=== PATIENT | female | born 1990 | race Caucasian/White ===

== ENCOUNTER 2017-04-20 13:57 | Emergency (ER) | payer MEDICAID ==
--- NOTE | 2017-04-20 14:31 | EDPHY ---
H & P Smoking Status: Current every day smoker <Natalia Almanza - Last Filed: 04/20/17 15:02> <Dustin Villalba - Last Filed: 04/20/17 15:55> Time Seen by Provider: 04/20/17 14:15 HPI/ROS: CHIEF COMPLAINT: "Stomach ache," CONSTIPATION HISTORY OF PRESENT ILLNESS: The patient is a 26-year-old female with bipolar disorder and previous kidney infection presents emergency department with abdominal cramping and discomfort. Her constipation started 7 days ago. She reports a single small bowel movement that had "some mucous." She has had 3 days of abdominal cramping. This is in the lower abdomen. Mild nause with no vomiting. She denies dysuria but has chronic frequency. Patient feels mildly bloated. Her last menstrual period was 04/11/2017 and she was "a little late." She has an IUD in place. She denies any back pain. No fevers or chills. REVIEW OF SYSTEMS: My complete review of systems is negative except as mentioned in the HPI. ( Natalia Almanza) Past Medical/Surgical History: Includes bipolar disorder, pyelonephritis, strep throat, hypertension Past surgical history: Denies Social history: The patient smokes cigarettes. She denies drugs or alcohol. ( Natalia Almanza) Physical Exam: Vitals noted. 37.1, 130/68, 80, 18, 98% on room air GENERAL: Well-appearing, in no acute distress, alert. HEENT: Eyes normal to inspection, normal pharynx, no signs of dehydration. NECK: No thyromegaly, no lymphadenopathy, supple. RESPIRATORY: Clear to auscultation bilaterally, no rales, rhonchi or wheezing. CVS: Regular rate and rhythm, no rubs, murmurs, or gallops. ABDOMEN: Soft, mild diffuse lower abdominal tenderness palpation with no rebound or guarding. Nondistended, no organomegaly. BACK: Normal to inspection, no CVA tenderness. SKIN: Normal color, no rash, warm, dry. No pallor. EXTREMITIES: No pedal edema, no calf tenderness, no joint swelling. NEURO/PSYCH: Alert and oriented, normal mood and affect (Natalia Almanza) Constitutional: Initial Vital Signs Temperature (C) 37.1 C 04/20/17 14:13 Heart Rate 80 04/20/17 14:13 Respiratory Rate 18 04/20/17 14:13 Blood Pressure 130/68 H 04/20/17 14:13 O2 Sat (%) 98 04/20/17 14:13 O2 Delivery Mode Room Air Allergies/Adverse Reactions: clindamycin Allergy (Unknown, Verified 04/20/17 14:13) Home Medications: Medication Instructions Recorded QUEtiapine FUMARATE [Seroquel 300 mg PO DAILY 04/12/12 300mg (RX)] lamoTRIgine [LamICTAL 100 mg (RX)] 100 mg PO 04/12/12 Propranolol HCl 03/16/14 Cephalexin [Keflex (*)] 500 mg PO QID #12 cap 04/20/17 Phenazopyridine HCl [Pyridium] 100 mg PO TID #6 tab 04/20/17 Medical Decision Making <Natalia Almanza - Last Filed: 04/20/17 15:02> - Diagnostics Imaging: Discussed imaging studies w/ manager call center Radiologist <Dustin Villalba - Last Filed: 04/20/17 15:55> - Diagnostics Imaging Results: Imaging Impressions Pelvic/Renal Ultrasound 04/20/17 14:33 Impression: No definite source for bleeding and diffuse abdominal pain. There may be minimal penetration of the myometrium by the IUD in the fundal region on the patient's right. Results called and discussed with Vini Villalba M.D. on 04/20/2017 at 15:34 ED Course/Re-evaluation: In the emergency department an IV was placed. Laboratory studies were obtained. Patient was given normal saline 500 mL IV for hydration. Laboratory studies and pelvic ultrasound were ordered. Patient refused an enema to treat her reported constipation. 1449 I reviewed the patient's laboratory studies. Of note her WBCs were elevated at 12. was negative. Chemistries pending. Patient is currently ultrasound. 1500: Patient is signed out to Dr. Villalba at change of shift. Patient is awaiting ultrasound results. Patient was noted to have an elevated white count with positive leuk esterase and white cells in her urine. She was written for a prescription of Keflex. (Natalia Almanza) 1500 patient signed out to me from Dr. Almanza pending pelvic ultrasound results. Patient presenting with constipation symptoms lower abdominal cramping and is pending ultrasound of her pelvis. Patient has a mild leukocytosis without a left shift. She also has leukocyte esterase and white cells in her urine. 1540 ultrasound results noted. I have discussed the findings with the patient. She will follow up with her OBGYN regarding her IUD placement. I have also reviewed the patient's urinalysis. She has 2+ epithelial cells which is suggestive more of contamination rather than UTI. She would prefer not to take the Keflex at this time. I will order a urine culture to establish if she has infection or not. Patient will be given a prescription bulla filled at this time will hold off and she will call back in 2 days to see the results of his cultures. If positive she can get that filled at that time. She otherwise has a benign exam. I have recommended that she continue MiraLax. Also recommended that she take magnesium citrate and also to use a enema at home. She can get both of these [id number]. I have given these instructions and she will follow up with primary care physician about a week, return for any worsening symptoms. (Dustin Villalba) Differential Diagnosis: My differential includes but is not limited to constipation, small-bowel obstruction, perforation, diverticulitis, ovarian cyst, ovarian torsion, , ectopic (Natalia Almanza) - Data Points Laboratory Results: Laboratory Results 04/20/17 14:40 04/20/17 14:40 04/20/17 04/20/17 04/20/17 14:40 14:40 14:30 WBC 12.02 10^3/uL H 10^3/uL (3.80-9.50) RBC 4.80 10^6/uL 10^6/uL (4.18-5.33) Hgb 15.9 g/dL g/dL (12.6-16.3) Hct 46.6 % % (38.0-47.0) MCV 97.1 fL fL (81.5-99.8) MCH 33.1 pg pg (27.9-34.1) MCHC 34.1 g/dL g/dL (32.4-36.7) RDW 12.3 % % (11.5-15.2) Plt Count 238 10^3/uL 10^3/uL (150-400) MPV 9.6 fL fL (8.7-11.7) Neut % (Auto) 67.6 % % (39.3-74.2) Lymph % (Auto) 21.6 % % (15.0-45.0) Randolph % (Auto) 8.4 % % (4.5-13.0) Eos % (Auto) 1.4 % % (0.6-7.6) Baso % (Auto) 0.6 % % (0.3-1.7) Nucleat RBC Rel Count 0.0 % % (0.0-0.2) Absolute Neuts (auto) 8.12 10^3/uL H 10^3/uL (1.70-6.50) Absolute Lymphs (auto) 2.60 10^3/uL 10^3/uL (1.00-3.00) Absolute Monos (auto) 1.01 10^3/uL H 10^3/uL (0.30-0.80) Absolute Eos (auto) 0.17 10^3/uL 10^3/uL (0.03-0.40) Absolute Basos (auto) 0.07 10^3/uL 10^3/uL (0.02-0.10) Absolute Nucleated RBC 0.00 10^3/uL 10^3/uL (0-0.01) Immature Gran % 0.4 % % (0.0-1.1) Immature Gran # 0.05 10^3/uL 10^3/uL (0.00-0.10) Sodium 138 mEq/L mEq/L (134-144) Potassium 4.2 mEq/L mEq/L (3.5-5.2) Chloride 104 mEq/L mEq/L (97-110) Carbon Dioxide 21 mEq/l L mEq/l (22-31) Anion Gap 13 mEq/L mEq/L (8-16) BUN 14 mg/dL mg/dL (7-23) Creatinine 0.7 mg/dL mg/dL (0.6-1.0) Estimated GFR > 60 Glucose 91 mg/dL mg/dL (70-100) Calcium 10.4 mg/dL mg/dL (8.5-10.4) Urine Color Urine Appearance Urine pH Ur Specific Dimock Urine Protein Urine Ketones Urine Blood Urine Nitrate Urine Bilirubin Urine Urobilinogen Ur Leukocyte Esterase Urine RBC Urine WBC Ur Epithelial Cells Urine Bacteria Urine Mucus Urine Glucose Urine Test NEGATIVE 04/20/17 14:00 WBC RBC Hgb Hct MCV MCH MCHC RDW Plt Count MPV Neut % (Auto) Lymph % (Auto) Randolph % (Auto) Eos % (Auto) Baso % (Auto) Nucleat RBC Rel Count Absolute Neuts (auto) Absolute Lymphs (auto) Absolute Monos (auto) Absolute Eos (auto) Absolute Basos (auto) Absolute Nucleated RBC Immature Gran % Immature Gran # Sodium Potassium Chloride Carbon Dioxide Anion Gap BUN Creatinine Estimated GFR Glucose Calcium Urine Color YELLOW Urine Appearance CLEAR Urine pH 6.0 (5.0-7.5) Ur Specific Dimock 1.015 (1.002-1.030) Urine Protein NEGATIVE (NEGATIVE) Urine Ketones NEGATIVE (NEGATIVE) Urine Blood NEGATIVE (NEGATIVE) Urine Nitrate NEGATIVE (NEGATIVE) Urine Bilirubin NEGATIVE (NEGATIVE) Urine Urobilinogen 0.2 EU EU (0.2-1.0) Ur Leukocyte Esterase TRACE H (NEGATIVE) Urine RBC 1-3 /hpf /hpf (0-3) Urine WBC 3-5 /hpf H /hpf (0-3) Ur Epithelial Cells 2+ /lpf H /lpf (NONE-1+) Urine Bacteria 1+ /hpf H /hpf (NONE SEEN) Urine Mucus TRACE /lpf /lpf (NONE-1+) Urine Glucose NEGATIVE (NEGATIVE) Urine Test Medications Given: Discontinued Medications Sodium Chloride (Ns) 500 mls @ 0 mls/hr IV ONCE ONE PRN Reason: Wide Open Stop: 04/20/17 14:33 Last Admin: 04/20/17 14:40 Dose: 500 mls Ketorolac Tromethamine (Toradol) 30 mg IVP EDNOW ONE Stop: 04/20/17 14:34 Last Admin: 04/20/17 14:56 Dose: Not Given Departure <Natalia Almanza - Last Filed: 04/20/17 15:02> <Dustin Villalba - Last Filed: 04/20/17 15:55> - Departure Disposition: Home, Routine, Self-Care Clinical Impression: Abdominal pain Qualifiers: Abdominal location: lower abdomen, unspecified Qualified Code(s): R10.30 - Lower abdominal pain, unspecified Condition: Good Instructions: Abdominal Pain (ED) Additional Instructions: Continue using the MiraLax daily as a stool softener. For worsening constipation you may by magnesium citrate [id number]. Drink 1/2 of the bottle and wait 1 hour. If you do not have a bowel movement after an hour drink the 2nd half of the bottle. You may also use a over-the- counter enema 1 hour after drinking the magnesium citrate to facilitate a bowel movement. Return to the emergency depart for increasing pain, fevers, chills, uncontrolled nausea vomiting, worsening constipation, or any other concerns. Call back in 2 days to check on your urine culture results before starting your antibiotic. Referrals: Amber Richards MD [Primary Care Provider] - 2-3 days, call for appt. Prescriptions: Cephalexin [Keflex (*)] 500 mg PO QID #12 cap Phenazopyridine HCl [Pyridium] 100 mg PO TID #6 tab
[2017-04-20] MEDS ORDERED: NS 500 ML IV ONE (14:32)
[2017-04-20] MEDS ORDERED: KETOROLAC 30 MG/1 ML SDV IVP ONE (14:33)
[2017-04-20 14:44] LABS: % IMMATURE GRANULYOCYTES 0.4 % (0.0-1.1); ABSOLUTE IMMATURE GRANULOCYTES 0.05 10^3/uL (0.00-0.10); ADD DIFF? NO; ADD MORPH? NO; ADD SCAN? NO; ATYPICAL LYMPHOCYTE FLAG 10 (0-99); FRAGMENT RBC FLAG 0 (0-99); HEMATOCRIT 46.6 % (38.0-47.0); HEMOGLOBIN 15.9 g/dL (12.6-16.3); LEFT SHIFT FLG 0 (0-99); LIPEMIA HEMOLYSIS FLAG 90 (0-99); MEAN CELL HEMOGLOBIN 33.1 pg (27.9-34.1); MEAN CELL HEMOGLOBIN CONCENTR. 34.1 g/dL (32.4-36.7); MEAN CELL VOLUME 97.1 fL (81.5-99.8); MEAN PLATELET VOLUME 9.6 fL (8.7-11.7); PLATELET CLUMPS FLAG 0 (0-99); PLATELET COUNT 238 10^3/uL (150-400); RED CELL DISTRIBUTION WIDTH 12.3 % (11.5-15.2)
[2017-04-20 14:45] LABS: COLOR YELLOW; LEUKOCYTE ESTERASE,URINE TRACE (NEGATIVE); NITRITE,URINE NEGATIVE (NEGATIVE)
[2017-04-20 14:46] LABS: MUCUS TRACE /lpf (NONE-1+)
[2017-04-20 14:47] LABS: BACTERIA 1+ /hpf (NONE SEEN)
[2017-04-20 14:58] LABS: ANION GAP 13 mEq/L (8-16); CALCIUM 10.4 mg/dL (8.5-10.4); CARBON DIOXIDE 21 mEq/l (22-31); CHLORIDE 104 mEq/L (97-110); CREATININE 0.7 mg/dL (0.6-1.0); GLOMERULAR FILTRATION RATE > 60; GLUCOSE 91 mg/dL (70-100); POTASSIUM 4.2 mEq/L (3.5-5.2); SODIUM 138 mEq/L (134-144)
[2017-04-20 16:04] VITALS: BP 108/60; PULSE 69; RESP 16; TEMP 98.6; O2SAT 96
== END 2017-04-20 16:00 | disposition home or self-care (01) ==
LOC: CED 13:57
DX: R10.30 Lower abdominal pain, unspecified (principal); I10 Essential (primary) hypertension; F17.210 Nicotine dependence, cigarettes, uncomplicated
CPT/HCPCS: 76856-PO; 80048-PO; 81003-PO; 81015-PO; 81025-PO; 85025-PO

== ENCOUNTER 2017-08-04 22:23 | Emergency (ER) | payer MEDICAID ==
[2017-08-04 23:12] VITALS: TEMP 97.9
[2017-08-05 00:22] VITALS: BP 120/65; PULSE 69; RESP 14; O2SAT 96
--- NOTE | 2017-08-05 00:33 | EDPHY ---
H & P Stated Complaint: JOHNSON/Dizzy/bilateral ear pain x 3 weeks. Time Seen by Provider: 08/04/17 22:53 HPI/ROS: HPI The patient presents with headache which is global, throbbing and occasionally sharp in nature which has occurred daily over the last 3 weeks. It has woken her at night and she is concerned so she comes in for evaluation. She has been taking ibuprofen with minimal improvement in her symptoms. She has been seen by her primary care doctor twice for this, initially diagnosed with acute otitis media and started on amoxicillin. She then had continued symptoms and took a course of steroids which she finished 2 days ago. Her symptoms persist. She also describes the dizziness which feels like wooziness when she goes from sitting to standing. She feels pressure behind her left ear more than the right. She does not have any ringing in her ears. She does not have any vomiting. She does not have any visual changes. She does have a history of migraines and used to be on Topamax.. REVIEW OF SYSTEMS Constitutional: No fever, no chills. Eyes: No discharge. ENT: No sore throat. Cardiovascular: No chest pain, no palpitations. Respiratory: No cough, no shortness of breath. Gastrointestinal: No abdominal pain, no vomiting. Genitourinary: No hematuria. Musculoskeletal: No back pain. Skin: No rashes. Neurological: No headache. 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 PHYSICAL General Appearance: Alert, no distress Eyes: Pupils equal and round no pallor or injection ENT, Mouth: Mucous membranes moist, TMs clear bilaterally Respiratory: Breathing comfortably Neurological: A& oriented x3, cranial nerves 2-12 intact, 5/5 strength in upper lower extremities which is symmetric, normal finger to nose testing Skin: Warm and dry, no rashes Musculoskeletal: Neck is supple non tender Extremities: symmetrical, full range of motion Psychiatric: Patient is oriented X 3, there is no agitation Source: Patient Exam Limitations: No limitations - Personal History LMP (Females 10-55): Post Menopausal Current Tetanus Diphtheria and Acellular Pertussis (TDAP): Unsure Tetanus Vaccine Date: unsure - Medical/Surgical History Hx Asthma: No Hx Chronic Respiratory Disease: No Hx Diabetes: No Hx Cardiac Disease: No Hx Renal Disease: No Hx Cirrhosis: No Hx Alcoholism: No Hx HIV/AIDS: No Hx Splenectomy or Spleen Trauma: No Other PMH: HTN, bipolar, kidney infection, strep throat - Social History Smoking Status: Former smoker Constitutional: Initial Vital Signs Temperature (C) 36.6 C 08/04/17 23:08 Heart Rate 68 08/04/17 23:08 Respiratory Rate 16 08/04/17 23:08 Blood Pressure 121/79 H 08/04/17 23:08 O2 Sat (%) 95 08/04/17 23:08 O2 Delivery Mode Room Air Allergies/Adverse Reactions: clindamycin Allergy (Unknown, Verified 08/04/17 22:32) Home Medications: Medication Instructions Recorded QUEtiapine FUMARATE [Seroquel 300 mg PO DAILY 04/12/12 300mg (RX)] lamoTRIgine [LamICTAL 100 mg (RX)] 100 mg PO 04/12/12 Propranolol HCl 03/16/14 Medical Decision Making - Diagnostics Imaging Results: Imaging Impressions Head CT 08/05/17 00:03 Impression: Normal brain. No change since January 2009. Findings discussed with A[place] [facility] [place] 08/05/2017 0:16. She will convey the results to physician, Margo Church MD. Imaging: Discussed imaging studies w/ roll up guider operator Radiologist, I viewed and interpreted images myself Differential Diagnosis: This is a 27-year-old female who presents with 3 weeks of persistent headache, treated with amoxicillin for acute otitis media and then steroid course. On exam, she has no neurologic deficit. The headache does awake her from sleep which is somewhat concerning to me. It does not seem to be postural however. She does have a fullness in her ears as well as the dizziness with no cerebellar findings on exam. Differential diagnosis includes sinusitis, tension type headache, migraine headache, brain mass, less likely subarachnoid hemorrhage. In the emergency department to discuss pros and cons of CT scan and she would like to proceed. Non con CT scan of brain is unremarkable for any acute bleed or mass. I have discussed these results with her. I have advised her to continue treatment with anti-inflammatory such as Excedrin migraine. I have given her follow-up for ear nose and throat given her ongoing year fullness and dizziness. Departure - Departure Disposition: Home, Routine, Self-Care Clinical Impression: Headache Qualifiers: Headache type: unspecified Headache chronicity pattern: acute headache Intractability: not intractable Qualified Code(s): R51 - Headache Condition: Good Instructions: Tension Headache (ED), Acute Headache (ED) Additional Instructions: Please follow up with your doctor in the next few days. Return to the ER if you are worse in any way. I have given you information for followup with ENT. You can call to schedule an appointment. Referrals: Amber Richards MD [Primary Care Provider] - As per Instructions Bill Guerin MD [Medical Doctor] - As per Instructions
== END 2017-08-05 00:45 | disposition home or self-care (01) ==
LOC: CED 22:23
DX: R51 Headache (principal); I10 Essential (primary) hypertension; Z87.891 Personal history of nicotine dependence
CPT/HCPCS: 70450-PO